=== PATIENT | female | born 1985 | race Caucasian/White ===

== ENCOUNTER → 2016-11-02 | Day surgery (SDC) | payer OTHER ==
[2016-11-01 14:35] VITALS: Ht 158.8 cm; Wt 63.6 kg
--- NOTE | 2016-11-01 14:54 | History and Physical: Surg Cnt ---
History & Physical Date Nov 01, 2016. Chief Complaint chronic ear infections, nasal obstruction History of Present Illness The patient is a 31 year old female with complaints of hearing loss, nasal obstruction Additional History Hepatic Disease: No Endocrine Disorder: No Kidney Disease: No Hypertension: No Heart Disease: No Bleeding Tendencies: No Infectious Diseases: No Allergies Coded Allergies: Clarithromycin (Verified Allergy, Unknown, THROAT SWELLING, 11/01/16) Sulfamethoxazole w/Trimethoprim (Verified Allergy, Unknown, THROAT SWELLING, 11/01/16) Home Medications Scheduled Control Pills ( Control Pills), 1 TAB PO QPM Loratadine (Claritin), 10 MG PO QPM Probiotic Product (Probiotic), 1 CAP PO QPM Physical Examination Skin: warm/dry, no rash Eyes: normal inspection, EOMI, sclerae normal ENT: normal ENT inspection, pharynx normal Head: normocephalic, atraumatic Neck: supple, no adenopathy, trachea midline Respiratory/Chest: lungs clear, normal breath sounds, no respiratory distress Cardiovascular: regular rate, rhythm, no edema, no murmur Abdomen / GI: normal bowel sounds, non tender Back: normal inspection Extremities: normal inspection, normal range of motion Neurologic/Psych: no motor/sensory deficits, alert, normal reflexes, oriented x 3 Diagnosis chronic otitis media, adenoid hypertrophy, deviated septum Plan of Treatment BMT, septoplasty, adenoidectomy
[~2016-11-02] VITALS: Ht 158.8 cm; Wt 63.6 kg
[~2016-11-02] MED LIST: ATROPINE SULFATE 0.1 MG/ML 5ML SYR IV PRN; BACITRACIN OINT 15 GM TUBE ONE; BCPILLS PO; CEFAZOLIN 1000MG/55 ML D5W IV SCH; CLR10 PO; DEXAMETHASONE SOD INJ 4 MG/ML VIAL ONE; EpHEDrine SULFATE INJ 50 MG/ML AMP IV PRN; EpINEphrine INJ 1MG/ML AMP 1 MG/ML AMP ONE; FENTANYL CITRATE INJ 50 MCG/1 ML 2 ML VIAL ONE; GELATIN SPONGE 12-7MM ONE; LACTATED RINGER'S 1000ML 1,000 ML IV SCH; LIDO 2%/EPINEPHRINE 1:100000 20 ML VIAL INFIL ONE; LIDOCAINE 4% MPF SOAK 5 ML = 1 DOSE TOP ONE; LIDOCAINE HCL 2% 2 ML VIAL (20MG/ML) ONE; MIDAZOLAM HCL 1 MG/ML 2ML VIAL ONE; MISCCAP80 PO; OFLOXACIN 0.3% OP SOLN 5 ML BTL ONE; ONDANSETRON INJ 2 MG/ML 2 ML VIAL ONE; OXYC-57 PO; OXYCODONE/ACETAMINOPHEN 5-325 TAB PO PRN; PROPOFOL IV EMULSION 10 MG/ML 20 ML VIAL IV ONE; SODIUM CHLORIDE 0.9% 1000ML 1,000 ML IV SCH; TETRACAINE HCL (OPHTH) 60 DROPS/4 ML BTL OP ONE
--- NOTE | 2016-11-02 06:53 | History & Physical Bridge Note ---
H&P Re-Evaluation Bridge Note: I have examined the patient, reviewed the History & Physical and in the interval since the performance of the History & Physical I have noted the following changes of clinical significance: No changes noted
[2016-11-02] MEDS: FENTANYL CITRATE INJ 50 MCG/1 ML 2 ML VIAL IV PRN ×4 (08:32→08:59)
--- NOTE | 2016-11-02 08:35 | Discharge Instructions-SurgCtr ---
Discharge Instructions Date of Service Nov 02, 2016. Visit Reason for Visit: Chronic O.m., Septal Deviation, Adenoid Hypertroph Discharge Discharge Diagnosis / Problem: same Discharge Goals Goal(s): Improve function Activity Recommendations Activity Limitations: resume your previous activity Anesthesia . Post Anesthesia Instructions: If you have had General Anesthesia or IV Sedation: * Do not drive today. * Resume driving when surgeon permits. * Do not make important decisions or sign legal documents today. * Call surgeon for: 1. Temperature elevations greater than 101 degrees F. 2. Uncontrollable pain. 3. Excessive bleeding. 4. Persistent nausea and vomiting. 5. Medication intolerance (nausea, vomiting or rash). * For nausea and vomiting use only clear liquids such as: tea, soda, bouillon until nausea subsides, then gradually increase diet as tolerated. * If you have any concerns or questions, call your surgeon's office. If physician is unavailable and it is an emergency, call 911 or go to the nearest emergency room. . Instructions / Follow-Up Instructions / Follow-Up ACTIVITY RECOMMENDATIONS: * Being up and around is good, but no strenuous activity, heavy lifting or physical exertion for one week. * Keep your head elevated 30 degrees when lying down or sleeping. * Do not blow your nose for 48 hours, sniff back instead. * Avoid hot showers. OVER THE COUNTER MEDICATIONS: * You may use Tylenol * Avoid aspirin or aspirin containing products, e.g. as they may increase bleeding. SPECIAL CARE INSTRUCTIONS: * Expect to have bloody drainage from your nose and/or down your throat for one to three days. Change drip pad as needed. * Begin irrigating your nose with saline solution today, at least six to ten times per day and sniff back to help remove old clots or crust. * You may experience nasal and facial congestion, pain and pressure, this is normal. * Please call with any significant and/or progressive pain, redness, swelling around the eyes, visual changes, fever of 101.5 degrees F, active bleeding or any problems or concerns. * If active bleeding occurs, spray the nose three times at one minute intervals with Afrin spray and call or cell phone: . If unable to reach the doctor, go to the nearest Emergency Department. Special Diet: * Avoid extremely hot fluids. FOLLOW UP VISIT: Follow-up Visit with Dr. Mullen If not already scheduled, please call to schedule.ACTIVITY RECOMMENDATIONS: * Take it easy today. * Return to regular activity tomorrow. OVER THE COUNTER MEDICATIONS: * You may use Tylenol for pain * Avoid aspirin or aspirin containing products, e.g. as they may increase bleeding. DIET: Resume previous diet RETURN TO SCHOOL/WORK: May return to normal activities tomorrow. SPECIAL CARE INSTRUCTIONS: * Drainage is not unusual during the first few days after placement of tubes. The drainage may be bloody. If it is foul smelling or very thick, please notify the doctor. Call or cell phone . * Keep water out of the ears when shampooing or bathing. Use cotton balls covered with Vaseline or "Macks" ear plugs. * Call physician if increased pain, fever over 101 degrees F. or any problems. FOLLOW UP VISIT: Follow-up Visit with Dr. Mullen in 2 weeks. Please call to schedule. Diet Recommendations Home Diet: no limitations Procedures Procedures Performed: Endoscopic Septoplasty, Adenoidectomy, Bilateral Myringotomy With Tubes Pending Studies Studies pending at discharge: no Medical Emergencies . Who to Call and When: Medical Emergencies: If at any time you feel your situation is an emergency, please call [phone] immediately. . Non-Emergent Contact Non-Emergency issues call your: Primary Care Provider . . "Provider Documentation" section prepared by Suni Mullen. [place] Drug Monitoring Program Search Results: no issues identified
--- NOTE | 2016-11-02 08:54 | OPERATIVE REPORT ---
DATE OF OPERATION: 11/02/2016 PREOPERATIVE DIAGNOSES: Chronic otitis media, adenoid hypertrophy, and septal deviation. POSTOPERATIVE DIAGNOSES: Same. PROCEDURE: Septoplasty, BMT, and adenoidectomy. SURGEON: Dr. Mullen. ANESTHESIA: General endotracheal. COMPLICATIONS: None. BLOOD LOSS: 30 mL HISTORY: A 31-year-old with significant nasal obstruction and significant otitis media with conductive hearing loss. DESCRIPTION OF PROCEDURE: The patient was brought to the operating room and placed in supine position. General endotracheal anesthesia was induced, prepped, draped in the usual sterile manner. The nose was decongested using cottonoids with topical solution of 4 mL of 4% Xylocaine with 1 mL of epinephrine on cottonoid pledgets. Injection of 2% Xylocaine 1:100,000 strength epinephrine was also used. A 0-degree endoscope was used. Incision was made over the bone spur on the left side using the 15 blade. This incision was made over the spur and then superior inferior tunnels were elevated, isolating the bony cartilaginous spur. Incision was made into the cartilaginous spur and resecting the cartilaginous spur. The bony spur was isolated via bilateral posterior tunnels and then superior inferior tunnels, isolating the bony spur which was fractured medially and then removed with the ethmoid forceps, returning the septum to the midline. The septum was packed with a single piece of Gelfoam on the left side. The soft palate was retracted using red rubber catheter. Adenoidectomy was performed using the coblation device coblating out adenoids from both posterior choanae and the entire adenoid bed. Hemostasis was controlled with the coblation device. They pharynx was irrigated clean with saline. Right ear was visualized and irrigated with peroxide, cleaned of cerumen. A myringotomy incision was made anterior inferiorly. Thick fluid was evacuated from middle ear space and a collar button type tube was inserted. Cortisporin drops were placed. Left tympanostomy performed similar manner. The patient tolerated the procedure well and was taken to the recovery area in satisfactory condition. I attest to the content of the Intraoperative Record and any orders documented therein. Any exceptions are noted below. [place]
--- NOTE | 2016-11-02 09:51 | Anesthesia Progress Nt - [facility] ---
Anesthesia Post Op Note Date & Time Nov 02, 2016 at 09:51 Vital Signs Pain Intensity: 4.0 Vital Signs Past 12 Hours Date Time Temp Pulse Resp B/P Pulse Ox O2 Delivery O2 Flow Rate FiO2 11/02/16 09:26 89 133/95 98 Room Air 11/02/16 09:06 71 16 136/99 99 11/02/16 09:06 70 16 11/02/16 09:05 36.7 77 20 136/99 98 Room Air 11/02/16 09:01 83 16 143/99 98 11/02/16 09:01 81 16 11/02/16 08:59 139/99 11/02/16 08:56 71 16 11/02/16 08:56 70 16 159/106 99 11/02/16 08:51 77 19 139/98 100 11/02/16 08:51 75 19 11/02/16 08:46 69 16 11/02/16 08:46 68 16 149/104 100 11/02/16 08:41 74 17 143/101 100 11/02/16 08:41 75 17 11/02/16 08:36 83 10 11/02/16 08:36 84 10 146/114 98 11/02/16 08:31 83 13 146/103 99 11/02/16 08:31 82 13 11/02/16 08:26 84 17 11/02/16 08:26 86 17 140/106 100 11/02/16 08:21 86 13 11/02/16 08:21 87 13 144/98 100 11/02/16 08:17 141/99 11/02/16 08:16 36.2 100 16 144/99 100 Diffusion Mask 6 11/02/16 06:22 36.8 78 16 128/86 100 Room Air Notes Mental Status: alert / awake / arousable, participated in evaluation Pt Amnestic to Procedure: Yes Nausea / Vomiting: adequately controlled Pain: adequately controlled Airway Patency, RR, SpO2: stable & adequate BP & HR: stable & adequate Hydration State: stable & adequate Anesthetic Complications: no major complications apparent
[2016-11-02 10:17] VITALS: BP 124/85; PULSE 86; TEMP 37.2; O2SAT 98
== END | disposition home or self-care (01) ==
LOC: X.SURG 06:14
PROVIDERS: ATTEND Otolaryngology
DX: H65.23 Chronic serous otitis media, bilateral (principal); J35.2 Hypertrophy of adenoids; J34.2 Deviated nasal septum; H91.90 Unspecified hearing loss, unspecified ear; Z88.1 Allergy status to other antibiotic agents; Z88.2 Allergy status to sulfonamides

== ENCOUNTER → 2017-08-30 | Outpatient (CLI) | payer OTHER ==
[~2017-08-30] MED LIST changes: -ATROPINE SULFATE 0.1 MG/ML 5ML SYR IV PRN; -BACITRACIN OINT 15 GM TUBE ONE; -CEFAZOLIN 1000MG/55 ML D5W IV SCH; -DEXAMETHASONE SOD INJ 4 MG/ML VIAL ONE; -EpHEDrine SULFATE INJ 50 MG/ML AMP IV PRN; -EpINEphrine INJ 1MG/ML AMP 1 MG/ML AMP ONE; -FENTANYL CITRATE INJ 50 MCG/1 ML 2 ML VIAL ONE; -GELATIN SPONGE 12-7MM ONE; -LACTATED RINGER'S 1000ML 1,000 ML IV SCH; -LIDO 2%/EPINEPHRINE 1:100000 20 ML VIAL INFIL ONE; -LIDOCAINE 4% MPF SOAK 5 ML = 1 DOSE TOP ONE; -LIDOCAINE HCL 2% 2 ML VIAL (20MG/ML) ONE; -MIDAZOLAM HCL 1 MG/ML 2ML VIAL ONE; -OFLOXACIN 0.3% OP SOLN 5 ML BTL ONE; -ONDANSETRON INJ 2 MG/ML 2 ML VIAL ONE; -OXYC-57 PO; -OXYCODONE/ACETAMINOPHEN 5-325 TAB PO PRN; -PROPOFOL IV EMULSION 10 MG/ML 20 ML VIAL IV ONE; -SODIUM CHLORIDE 0.9% 1000ML 1,000 ML IV SCH; -TETRACAINE HCL (OPHTH) 60 DROPS/4 ML BTL OP ONE
== END | disposition home or self-care (01) ==
LOC: C.PAPS 16:18
PROVIDERS: ATTEND Obstetrics & Gynecology
DX: Z12.4 Encounter for screening for malignant neoplasm of cervix (principal)